=== PATIENT | female | born 1995 | race Caucasian/White ===

== ENCOUNTER 2024-02-13 11:00 | Emergency (ER) | payer SELFPAY ==
[2024-02-13] MEDS ORDERED: NA CHLORIDE 0.9% 500 ML ONE (12:41)
[2024-02-13 12:50] LABS: Absolute Basophils 0.1 K/uL (0-0.5); Absolute Eosinophils 0.4 K/uL (0-0.5); Absolute Lymphocytes (CBC) 1.8 K/uL (0.7-4.9); Absolute Monocytes 0.7 K/uL (0.1-1.3); Absolute Neutrophil 4.8 K/uL (1.8-8.0); Basophils % 1.1 % (0-1.3); Eosinophils % 5.8 % (0-4.4); Hematocrit 38.1 % (36.0-45.0); Hemoglobin 12.6 g/dL (12.0-15.0); Lymphocytes % 23.6 % (15.3-44.8); MCH 30.8 pg (27.0-35.0); MCV 93.4 fL (80-100); Monocytes % 8.6 % (3.3-12.3); Neutrophils % 60.9 % (41.7-73.7); Platelets 249 thou/uL (152-406); RBC Red Blood Cell Count 4.08 M/uL (3.86-4.86); Red Cell Distribution Width 12.9 % (12.1-15.2)
[2024-02-13 12:53] LABS: Specific Gravity 1.011 (1.005-1.030)
[2024-02-13 12:59] LABS: Specific Gravity 1.011 (1.005-1.030); Urine Bilirubin NEGATIVE (Negative); Urine Blood Negative (Negative); Urine Clarity Clear (Clear); Urine Color Light-Yellow (Yellow); Urine Glucose NEGATIVE (Negative); Urine Ketones NEGATIVE (Negative); Urine Microscopic Reflex YN NO UMIC; Urine Nitrite NEGATIVE (Negative); Urine Protein NEGATIVE (Negative); Urine Urobilinogen Normal (Normal)
[2024-02-13 13:09] LABS: Albumin 3.9 g/dL (3.4-5.0); Anion Gap 9.6 mEq/L (5.0-15.0); Bilirubin Total 0.2 mg/dL (0.2-1.0); Globulin 3.8 g/dL (2.3-3.5); Potassium 3.6 mEq/L (3.5-5.1); Protein, Total 7.7 g/dL (6.4-8.2)
[2024-02-13 14:32] VITALS: BP 119/66; TEMP 98.2; O2SAT 100
--- NOTE | 2024-02-13 15:09 | ER ---
Nurse's Notes [facility] Name: Apryl Vu Age: 29 yrs Sex: Female : 1995 Arrival Date: 02/13/2024 Time: 11:00 Bed 19 Private MD: Rhett Mejia Diagnosis: Edema, unspecified Presentation: 02/12 11:17 Chief complaint: Patient states: bilateral hand and foot swelling that began yesterday ss morning. HX of mastocytosis. Pt reports after taking two advil this morning, the swelling has gone down significantly. Coronavirus screen: Client denies travel out of the [place] in the last 14 days. Ebola Screen: Patient denies exposure to infectious person. Patient denies travel to an Ebola-affected area in the 21 days before illness onset. Initial Sepsis Screen: Does the patient meet any 2 criteria? No. Patient's initial sepsis screen is negative. Does the patient have a suspected source of infection? No. Patient's initial sepsis screen is negative. Risk Assessment: Do you want to hurt yourself or someone else? Patient reports no desire to harm self or others. Onset of symptoms was February 12, 2024. 11:17 Method Of Arrival: Ambulatory ss 11:17 Acuity: JABIER 4 ss Triage Assessment: 11:19 General: Appears in no apparent distress. comfortable, Behavior is calm, cooperative. ss Neuro: Level of Consciousness is awake, alert, obeys commands, Oriented to person, place, time, situation. Respiratory: Respiratory effort is even, unlabored. 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 - Infectious Disease History:: Denies. - Social history:: Smoking status: Reported history of juuling and/or vaping. - Family history:: not pertinent. Screenin:20 [facility] ED Fall Risk Assessment (Adult) History of falling in the last 3 months, bp including since admission No falls in past 3 months (0 pts) Confusion or Disorientation No (0 pts) Intoxicated or Sedated No (0 pts) Impaired Gait No (0 pts) Mobility Assist Device Used No (0 pt) Altered Elimination No (0 pt) Score/Fall Risk Level 0 - 2 = Low Risk. Abuse screen: Denies threats or abuse. Denies injuries from another. Nutritional screening: No deficits noted. Tuberculosis screening: No symptoms or risk factors identified. Assessment: 11:20 General: Appears in no apparent distress. Behavior is cooperative, appropriate for age, bp anxious. Pain: Denies pain. Neuro: No deficits noted. Cardiovascular: No deficits noted. Respiratory: No deficits noted. GI: No signs and/or symptoms were reported involving the gastrointestinal system. : No signs and/or symptoms were reported regarding the genitourinary system. EENT: No deficits noted. Derm: No deficits noted. Musculoskeletal: No deficits noted. 12:59 Reassessment: Patient appears in no apparent distress at this time. Patient is alert, bp oriented x 3, equal unlabored respirations, skin warm/dry/pink. 13:54 Reassessment: DC HOME AMBULATORY WITH FAMILY. bp Vital Signs: 11:17 BP 111 / 72; Pulse 79; Resp 15; Temp 98.2(O); Pulse Ox 100% on R/A; Weight 65.77 kg; ss Height 5 ft. 3 in. ; Pain 0/10; 12:57 BP 116 / 73; Pulse 76; Resp 16; Pulse Ox 100% ; bp 13:53 BP 119 / 66; Pulse 79; Resp 15; Pulse Ox 100% ; bp 11:17 Body Mass Index 25.69 (65.77 kg, 160.02 cm) ss 11:17 Pain Scale: Adult ED Course: 11:04 Patient arrived in ED. mr 11:04 Rhett Mejia DO is Private Physician. mr 11:06 Gerson Clark MD is Attending Physician. ashley 11:19 Triage completed. ss 11:19 Arm band placed on left wrist. ss 11:20 Patient has correct armband on for positive identification. bp 11:20 Inserted saline lock: 22 gauge in left antecubital area, using aseptic technique. Blood bp collected. 12:02 Robe Delgado, RN is Primary Nurse. bp 13:47 Rhett Mejia DO is Referral Physician. ashley 13:54 No provider procedures requiring assistance completed. IV discontinued, intact, bp bleeding controlled, No redness/swelling at site. Pressure dressing applied. 13:55 Provided Education on: N/A. bp Administered Medications: :30 Drug: NS 0.9% IV 500 ml IV at bolus once Route: IV; Rate: bolus; Site: left antecubital;bp 13:55 Follow up: IV Status: Completed infusion; IV Intake: 500ml bp Medication: 11:20 VIS not applicable for this client. bp Intake: 13:55 IV: 500ml; Total: 500ml. bp Outcome: 13:48 Discharge ordered by . ashley 13:54 Discharged to home ambulatory, bp 13:54 Condition: stable 13:54 Discharge instructions given to patient, Instructed on discharge instructions, follow up and referral plans. medication usage, Demonstrated understanding of instructions, follow-up care, medications, Prescriptions given X 1, 13:58 Patient left the ED. bp Signatures: Gerson Clark MD MD cha Rivera, Merry, Reg Reg mr Rosi Carvalho, RN RN Robe Delgado RN RN bp
--- NOTE | 2024-02-13 15:09 | EDPHYS ---
Physician Documentation [facility] Name: Apryl Vu Age: 29 yrs Sex: Female : 1995 Arrival Date: 02/13/2024 Time: 11:00 Bed 19 Private MD: [facility] ED Physician Gerson Clark HPI: 02/12 13:42 This 29 yrs old Female presents to ER via Ambulatory with complaints of Hand ashley Swelling, Feet Swelling, Numbness Of Hand. 13:42 The patient or guardian reports swelling. The complaints affect the left hand ashley diffusely, right hand diffusely. Context: The problem was sustained at an unknown location. Onset: The symptoms/episode began/occurred yesterday. Modifying factors: The symptoms are alleviated by nothing, the symptoms are aggravated by nothing. Associated signs and symptoms: The patient has no apparent associated signs or symptoms. Severity of symptoms: At their worst the symptoms were moderate, in the emergency department the symptoms are unchanged. The patient has not experienced similar symptoms in the past. 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 - Infectious Disease History:: Denies. - Social history:: Smoking status: Reported history of juuling and/or vaping. - Family history:: not pertinent. ROS: 13:42 Constitutional: Negative for fever, chills, and weight loss, Eyes: Negative for injury, ashley pain, redness, and discharge, ENT: Negative for injury, pain, and discharge, Neck: Negative for injury, pain, and swelling, Cardiovascular: Negative for chest pain, palpitations, and edema, Respiratory: Negative for shortness of breath, cough, wheezing, and pleuritic chest pain, Abdomen/GI: Negative for abdominal pain, nausea, vomiting, diarrhea, and constipation, Back: Negative for injury and pain, : Negative for injury, bleeding, discharge, and swelling, Skin: Negative for injury, rash, and discoloration, Neuro: Negative for headache, weakness, numbness, tingling, and seizure, Psych: Negative for depression, anxiety, suicide ideation, homicidal ideation, and hallucinations, Allergy/Immunology: Negative for hives, rash, and allergies, Endocrine: Negative for neck swelling, polydipsia, polyuria, polyphagia, and marked weight changes, Hematologic/Lymphatic: Negative for swollen nodes, abnormal bleeding, and unusual bruising, 13:42 MS/extremity: Positive for pain, swelling, tenderness, of the right hand, left hand, right foot and left foot, Exam: 13:42 Constitutional: This is a well developed, well nourished patient who is awake, alert, ashley and in no acute distress. Head/Face: Normocephalic, atraumatic. Eyes: Pupils equal round and reactive to light, extra-ocular motions intact. Lids and lashes normal. Conjunctiva and sclera are non-icteric and not injected. Cornea within normal limits. Periorbital areas with no swelling, redness, or edema. ENT: Nares patent. No nasal discharge, no septal abnormalities noted. Tympanic membranes are normal and external auditory canals are clear. Oropharynx with no redness, swelling, or masses, exudates, or evidence of obstruction, uvula midline. Mucous membranes moist. Neck: Trachea midline, no thyromegaly or masses palpated, and no cervical lymphadenopathy. Supple, full range of motion without nuchal rigidity, or vertebral point tenderness. No Meningismus. Chest/axilla: Normal chest wall appearance and motion. Nontender with no deformity. No lesions are appreciated. Cardiovascular: Regular rate and rhythm with a normal S1 and S2. No gallops, murmurs, or rubs. Normal PMI, no JVD. No pulse deficits. Respiratory: Lungs have equal breath sounds bilaterally, clear to auscultation and percussion. No rales, rhonchi or wheezes noted. No increased work of breathing, no retractions or nasal flaring. Abdomen/GI: Soft, non-tender, with normal bowel sounds. No distension or tympany. No guarding or rebound. No evidence of tenderness throughout. Back: No spinal tenderness. No costovertebral tenderness. Full range of motion. Skin: Warm, dry with normal turgor. Normal color with no rashes, no lesions, and no evidence of cellulitis. MS/ Extremity: Pulses equal, no cyanosis. Neurovascular intact. Full, normal range of motion. Neuro: Awake and alert, GCS 15, oriented to person, place, time, and situation. Cranial nerves II-XII grossly intact. Motor strength 5/5 in all extremities. Sensory grossly intact. Cerebellar exam normal. Normal gait. Psych: Awake, alert, with orientation to person, place and time. Behavior, mood, and affect are within normal limits. 13:42 Musculoskeletal/extremity: ROM: no acute changes, intact in all extremities, full active range of motion, full passive range of motion, Circulation is intact in all extremities. Sensation intact. Compartment Syndrome exam of affected extremity: is normal. no pain, no numbness, no tingling, no sensation deficit, no palor, no weak pulses, Weight bearing: able to fully bear weight, DVT Exam: No signs of deep vein thrombosis. no pain, no swelling, no tenderness, negative Homans' sign noted on exam, no appreciated bluish discoloration, no erythema, no increased warmth, Vital Signs: 11:17 BP 111 / 72; Pulse 79; Resp 15; Temp 98.2(O); Pulse Ox 100% on R/A; Weight 65.77 kg; ss Height 5 ft. 3 in. ; Pain 0/10; 12:57 BP 116 / 73; Pulse 76; Resp 16; Pulse Ox 100% ; bp 13:53 BP 119 / 66; Pulse 79; Resp 15; Pulse Ox 100% ; bp 11:17 Body Mass Index 25.69 (65.77 kg, 160.02 cm) ss 11:17 Pain Scale: Adult ss MDM: 11:06 Patient medically screened. [facility] 13:45 Differential diagnosis: contusion, tendonitis. Data reviewed: vital signs, nurses ashley notes, lab test result(s). Consideration of Admission/Observation Escalation of care including admission/observation considered. I considered the following discharge prescriptions or medication management in the emergency department Medications were administered in the Emergency Department. See MAR. Test considered but Not performed: Ultrasound no usg dopplers. Historians other than the Patient: Spouse/Significant Other: well informed. Care significantly affected by the following chronic conditions: mastocytosis, adhd, anxiety. Counseling: I had a detailed discussion with the patient and/or guardian regarding the historical points, exam findings, and any diagnostic results supporting the discharge/admit diagnosis, lab results, the need for outpatient follow up, for definitive care, a family practitioner. 02/12 11:07 Order name: CBC with Diff; Complete Time: 13:07 [facility] 02/12 11:07 Order name: Comprehensive Metabolic Panel; Complete Time: 13:10 [facility] 02/12 11:07 Order name: Urinalysis w/ reflexes; Complete Time: 13:07 [facility] 02/12 11:07 Order name: PREGU; Complete Time: 13:07 [facility] Administered Medications: 11:30 Drug: NS 0.9% IV 500 ml IV at bolus once Route: IV; Rate: bolus; Site: left antecubital;bp 13:55 Follow up: IV Status: Completed infusion; IV Intake: 500ml bp Disposition Summary: 02/13/24 13:48 Discharge Ordered Notes: Location: Home [facility] Problem: new ashley Symptoms: have improved ashley Condition: Stable ashley Diagnosis - Edema, unspecified ashley Followup: [facility] - With: Rhett Mejia, DO - When: 2 - 3 days - Reason: If symptoms return, Recheck today's complaints, Continuance of care, Re-evaluation by your physician Discharge Instructions: - Discharge Summary Sheet ashley - Edema ashley - Edema, [id number] [facility] - Peripheral Edema [facility] Forms: - Medication Reconciliation Form [facility] - Antibiotic Education ashley - Prescription Opioid Use ashley - Patient Portal Instructions [facility] - Leadership Thank You Letter [facility] Prescriptions: - Ibuprofen 600 mg Oral tablet - take 1 tablet ORAL route every 8 hours As needed take with food; 21 tablet; [facility] Refills: 0, Product Selection Permitted Signatures: Dispatcher [employer] Gerson Wayne MD MD cha Blanchard, Shelby, RN RN Robe Delgado RN RN bp
== END 2024-02-13 13:58 | disposition home or self-care (01) ==
LOC: ER 11:00
DX: R60.9 Edema, unspecified (principal)
CPT/HCPCS: 36415; 80053; 81003; 81025; 85025; J7040